=== PATIENT | female | born 1975 | race Two or more races ===

== ENCOUNTER 2020-12-28 09:26 | Day surgery (SDC) | payer OTHER | END 2020-12-28 14:25 | disposition home or self-care (01) | LOC: AMB-ENDOS 09:26 | PROVIDERS: ATTEND Surgery | DX: K62.89 Other specified diseases of anus and rectum (principal); Z20.822 Contact with and (suspected) exposure to COVID-19; Z12.11 Encounter for screening for malignant neoplasm of colon ==

== ENCOUNTER 2021-03-25 13:00 | Emergency (ER) | payer OTHER ==
[~2021-03-25] VITALS: Ht 149.9 cm; Wt 55.8 kg
[2021-03-25] MEDS ORDERED: ANASTROZOLE1 MG PO (13:17)
[2021-03-25] MEDS ORDERED: ZOLADEX3.6 MG SQ (13:18)
[2021-03-25] MEDS ORDERED: ZITHROMAX200 MG PO (17:43)
[2021-03-25] MEDS ORDERED: OSEL75CA PO (17:43)
== END 2021-03-25 18:22 | disposition home or self-care (01) ==
LOC: ER 13:00
DX: J10.89 Influenza due to other identified influenza virus with other manifestations (principal); B96.0 Mycoplasma pneumoniae [M. pneumoniae] as the cause of diseases classified elsewhere; B34.9 Viral infection, unspecified; Z20.822 Contact with and (suspected) exposure to COVID-19

== ENCOUNTER 2022-06-16 16:56 | Emergency (ER) | payer OTHER ==
[~2022-06-16] VITALS: Ht 149.9 cm; Wt 54.4 kg
[~2022-06-16 16:56] MED LIST: ANASTROZOLE1 MG PO; OSEL75CA PO; ZITHROMAX200 MG PO; ZOLADEX3.6 MG SQ
== END 2022-06-16 18:56 | disposition home or self-care (01) ==
LOC: ER 16:56
DX: L30.9 Dermatitis, unspecified (principal)

== ENCOUNTER 2022-08-02 13:11 | Emergency (ER) | payer OTHER ==
[~2022-08-02] VITALS: Ht 149.9 cm; Wt 54.4 kg
[2022-08-02] MEDS ORDERED: LEVOTHYROXINE25 MCG PO (13:55)
[2022-08-02] MEDS ORDERED: CEFDINIR300 MG PO (15:43)
== END 2022-08-02 15:54 | disposition home or self-care (01) ==
LOC: ER 13:11
DX: N39.0 Urinary tract infection, site not specified (principal)

== ENCOUNTER → 2022-11-07 | Day surgery (SDC) | payer OTHER ==
[~2022-11-07] VITALS: Ht 149.9 cm; Wt 54.4 kg
[~2022-11-07] MED LIST changes: +CEFDINIR300 MG PO; +LEVOTHYROXINE25 MCG PO
== END | disposition home or self-care (01) ==
LOC: ADM 11-05 12:00 → CIR.AMB 06:40
PROVIDERS: ATTEND Obstetrics & Gynecology Gynecologic Oncology
DX: N93.8 Other specified abnormal uterine and vaginal bleeding (principal); R10.2 Pelvic and perineal pain; I10 Essential (primary) hypertension